=== PATIENT | male | born 1945 ===

== ENCOUNTER 2017-04-09 06:05 | Inpatient (IN) | payer MEDICARE ==
--- NOTE | 2017-04-05 17:00 | HP ---
HISTORY AND PHYSICAL EXAMINATION: DATE OF PROCEDURE: 04/09/17 ATTENDING SURGEON: Tony Sevilla MD * (DICTATED BY ANA WAN) PROCEDURE: Left total hip replacement. CHIEF COMPLAINT: Left hip pain. HISTORY OF PRESENT ILLNESS: The patient is a very pleasant 71-year-old gentleman with a longstanding history of left leg pain who has been followed by Dr. Sevilla and diagnosed with severe end-stage osteoarthritis. He has elected to undergo a left total hip arthroplasty with Dr. Sevilla. PAST MEDICAL HISTORY: 1. Hypertension. 2. Dyslipidemia. PAST SURGICAL HISTORY: 1. Left knee cartilage surgery in 1968. 2. Right knee ACL and cartilage surgery in 1989. MEDICATIONS: 1. Atorvastatin 20 mg 1 tablet p.o. q.h.s. 2. Levocetirizine 5 mg 1 tablet by mouth daily. 3. Fluticasone 50 mcg/ACT 2 sprays each nostril daily p.r.n. 4. Losartan 50 mg 1 tablet by mouth daily. 5. Hydrochlorothiazide 50 mg p.o. daily. ALLERGIES: ZESTRIL. FAMILY HISTORY: Father, history of lung cancer, melanoma, and emphysema. Mother had hypertension. SOCIAL HISTORY: Currently , resides in [place] . No tobacco use. Occasional alcohol use up to 5 drinks per week. Currently living in a 1-anaya house. REVIEW OF SYSTEMS: General: No recent weight changes. No history of seizures or stroke. HEENT: No history of headaches, lightheadedness, dizziness, or syncopal episodes. Cardiac: No history of palpitations, recent abnormal EKG; however, no history of cardiac disease or chest pain. Lungs: No history of COPD, chronic cough, or wheezing. Abdomen: Denies nausea, vomiting, constipation, diarrhea. 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 GI: No history of urinary frequency, urgency. No history of urinary tract infections or kidney stones. Neurologic: No paresthesias or numbness. No history of seizure, stroke, or epilepsy. Hematologic: No history of anemia. No difficulty with bleeding. Positive fear of needles causing fainting. Infectious Disease: No history of HIV, hepatitis, MRSA, or VRE. Integument: No difficulty with wound healing. No open wounds or sores. PHYSICAL EXAMINATION GENERAL: Well appearing, in no acute distress. Alert and oriented. Appears younger than stated age. VITAL SIGNS: Temperature 97.9, blood pressure 130/82, respirations 18. LUNGS: Clear to auscultation bilaterally. No crackles, rhonchi or wheezes. CARDIAC: Regular rate and rhythm. No murmurs, gallops, or rubs. ABDOMEN: Soft, nontender, nondistended. Negative CVA tenderness bilaterally. Normoactive bowel sounds. MUSCULOSKELETAL: Left hip with forward flexion to 60 degrees, abduction to approximately 25 degrees, pain with internal rotation. Posterior tibial pulses 2+ bilaterally. Negative edema, bilateral lower extremities. Negative Homans sign bilaterally. Sensation is intact to light touch in bilateral lower extremities. Positive dorsiflexion, plantar flexion bilaterally. ASSESSMENT: Stable 71-year-old man scheduled to undergo a left total hip arthroplasty. PLAN: The patient underwent radiographs today, which showed severe osteoarthritis of the left hip joint with multiple osseous sites. There were reviewed with Dr. Sevilla. The patient was recently seen by his primary care doctor, and was cleared for the procedure after undergoing cardiac testing including a nuclear stress test, which was negative. We discussed postoperative care, the patient was to return to home. He has not taken narcotics in the past and so no narcotics were prescribed to the patient. He will be on Coumadin postoperatively. He had no other questions or concerns; however, will contact us if any do arise. ANA WAN [id number]/[facility] #: [id number] [facility] CENTERWendi
[~2017-04-09 06:05] MED LIST: Buffered Lidocaine 0.9% SYRIN* 5 ML/SYR SYRINGE INTRADERM ONE; Buffered Lidocaine 0.9% SYRIN* 5 ML/SYR SYRINGE ONE; Famotidine IV* 10 MG/ML 2 ML (20 mg) IV ONE; Famotidine IV* 10 MG/ML 2 ML (20 mg) ONE; Metoclopramide TAB* 10 MG ONE; Metoclopramide TAB* 10 MG PO ONE; ceFAZolin 2 GM PREMIX (*) 2 GM/50 ML BAG IVPB ONE
[2017-04-09 06:47] LABS: INR 0.97 (0.77-1.02)
[2017-04-09] MEDS ORDERED: Ondansetron INJ* 2 MG/ML VIAL ONE (07:06)
[2017-04-09] MEDS ORDERED: Dexamethasone IV* 4 MG/ML 1 ML (4 MG) ONE (07:06)
[2017-04-09] MEDS ORDERED: Ketorolac INJ* 30 MG/ML 1 ML VIAL ONE (07:06)
[2017-04-09] MEDS ORDERED: Lidocaine 2% PF * 5 ML VIAL ONE (07:06)
[2017-04-09] MEDS ORDERED: Propofol* 10 MG/ML 20 ML BTL IV PUSH ONE (07:06)
[2017-04-09] MEDS ORDERED: Midazolam* 1 MG/ML 10 ML VIAL (10 MG) ONE (07:07)
[2017-04-09] MEDS ORDERED: KETAMINE HCL* 50 MG/ML 10 ML VIAL ONE (07:07)
[2017-04-09] MEDS ORDERED: fentaNYL* 50 MCG/ML 2 ML VIAL (100 MCG VIAL) ONE (07:07)
[2017-04-09] MEDS ORDERED: fentaNYL* 50 MCG/ML 5 ML VIAL (250 MCG VIAL) ONE (07:36)
[2017-04-09] MEDS ORDERED: Cisatracurium* 2 MG/ML MDV 5 ML ONE (07:36)
[2017-04-09] MEDS ORDERED: EPHEDrine (Pressors)* 50 MG/ML VIAL ONE (07:45)
[2017-04-09] MEDS ORDERED: Lidocaine 1% MPF wEPI 200,000* 30 ML SDV ONE (07:55)
[2017-04-09] MEDS ORDERED: Bupivacaine 0.5% SDV PF* 10-30ML VIAL ONE (07:55)
[2017-04-09] MEDS ORDERED: VASOPRESSIN 20 UNITS/ML 1 ML VIAL ONE (08:16)
[2017-04-09] MEDS ORDERED: Naloxone* 0.4 MG/ML 1 ML VIAL IV PRN (08:38)
[2017-04-09] MEDS ORDERED: fentaNYL* 50 MCG/ML 2 ML VIAL (100 MCG VIAL) IV PRN (08:38)
[2017-04-09] MEDS ORDERED: HYDROmorphone INJ* 1 MG/ML CARPUJECT SYRINGE IV PRN (08:43)
[2017-04-09] MEDS ORDERED: Ondansetron INJ* 2 MG/ML VIAL IV PRN ×2 (08:43→10:24)
[2017-04-09] MEDS ORDERED: Morphine INJ* 4 MG/ML 1 ML CARPUJECT IV PRN (10:24)
[2017-04-09] MEDS ORDERED: Ondansetron TAB* 4 MG PO PRN (10:24)
[2017-04-09] MEDS ORDERED: diPHENhydraMINE IV* 50 MG/ML 1 ml VIAL (BENADRYL) IV PRN (10:24)
[2017-04-09] MEDS ORDERED: Cyclobenzaprine TAB* 10 MG PO PRN (10:24)
[2017-04-09] MEDS ORDERED: Magnesium Hydroxide LIQ* 30 ML UDC PO PRN (10:24)
[2017-04-09] MEDS ORDERED: Morphine INJ* 2 MG/ML 1 ML SYRINGE (TWO MG - NEW SYRINGE VERSION) IV PRN (10:24)
[2017-04-09] MEDS ORDERED: Acetaminophen TAB* 325 MG PO PRN (10:24)
[2017-04-09] MEDS ORDERED: oxyCODONE TAB* 5 MG TAB PO PRN (10:24)
[2017-04-09] MEDS ORDERED: oxyCODONE/Acetamin 5/325 MG* TAB PO PRN (10:24)
[2017-04-09] MEDS ORDERED: Bisacodyl SUPP* 10 MG SUPP PR PRN (10:24)
[2017-04-09] MEDS ORDERED: D5W 1/2 NS 1000 ML BAG* 1,000 ML IV SCH (11:00)
--- NOTE | 2017-04-09 11:40 | RAD ---
Indication: Left hip replacement, left hip pain. 2 views of left hip are reviewed. Patient status post left hip replacement. No loosening is noted. IMPRESSION: Left hip replacement in satisfactory position.
[2017-04-09] MEDS ORDERED: Warfarin TAB(*) 10 MG PO ONE (17:00)
--- NOTE | 2017-04-09 17:08 | CONSULT ---
Subjective Date of Service: 04/09/17 Interval History: Mr. Maldonado has no pain POD #0. He has no complaints. Says his PCP has been titrating his bp meds and recently added hctz. 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 Past Medical History: Unchanged from Admission Review of Systems - Measurements Intake and Output: Intake and Output Last 24 Hours 04/07/17 04/08/17 04/09/17 04/10/17 06:59 06:59 06:59 06:59 Intake Total 2800 Output Total 600 Balance 2200 Weight 112.945 kg Intake: IV Fluids 2300 LR 2250 NS 50ML, Cefazolin 2G 50 Oral 500 Output: Urine 325 Lopez 200 Estimated Blood Loss 75 - Review of Systems Constitutional Symptoms: Positive: Night Sweats, Unexplained Falls, Other Negative: Weight Gain, Weight Loss, Weakness, Fatigue, Fever Pulmonary: Negative: Normal, Cough, Sputum, Hemoptysis, Wheezing, Respiratory Distress, Shortness of Breath, COPD, Asthma, Exercise Intolerance, Home Oxygen, Other Cardiology: Negative: Normal, Chest Pain, Shortness of Breath, Palpitations, Swelling of Ankles, Peripheral Vascular Dis, Edema, Faintness, Syncope, Claudication, Proximal NocturnalDyspnea, Orthopnoea, Other Musculoskeletal: Positive: Joint Stiffness Objective Active Medications: Acetaminophen (Tylenol Tab*) 650 mg PO Q4H PRN PRN Reason: FEVER/PAIN Aspirin (Aspirin Ec Low Dose*) 81 mg PO QAM MARILUZ Bisacodyl (Dulcolax Supp*) 10 mg TN DAILY PRN PRN Reason: constipation Cetirizine HCl (Zyrtec*) 10 mg PO QAM MARILUZ Cyclobenzaprine HCl (Flexeril Tab*) 10 mg PO TID PRN PRN Reason: SPASMS Diphenhydramine HCl (Benadryl Iv*) 25 mg IV Q6H PRN PRN Reason: itching Docusate Sodium (Colace Cap*) 100 mg PO BID MARILUZ Fluticasone Propionate (Flonase Nasal [place] 50mcg*) 1 spray BOTH NARES BID MARILUZ Heparin Sodium (Porcine) (Heparin Vial(*)) 5,000 units SUBCUT Q12H MARILUZ Hydrochlorothiazide (Hydrodiuril Tab*) 50 mg PO QAM MARILUZ Dextrose/Sodium Chloride (D5w 1/2 Ns 1000 Ml Bag*) 1,000 mls @ 100 mls/hr IV PER RATE MARILUZ Cefazolin Sodium/Dextrose (Kefzol 1 Gm In Dextrose Duplex (*)) 1 gm in 50 mls @ 200 mls/hr IVPB Q8H [facility] Stop: 04/10/17 10:44 Lactulose (Lactulose*) 30 ml PO BID PRN PRN Reason: constipation Losartan Potassium (Cozaar Tab*) 50 mg PO BID MARILUZ Magnesium Hydroxide (Milk Of Magnesia Liq*) 30 ml PO BID MARILUZ Magnesium Hydroxide (Milk Of Magnesia Liq*) 30 ml PO Q6H PRN PRN Reason: constipation Morphine Sulfate (Morphine Inj (Syringe)*) 2 mg IV Q2H PRN PRN Reason: PAIN - SEVERE Morphine Sulfate (Morphine Inj (Syringe)*) 4 mg IV Q2H PRN PRN Reason: PAIN - SEVERE Multivitamins/Minerals (Theragran/Minerals Tab*) 1 tab PO QAM [facility] Pto: Saw [place] 1 (Cap) 1 cap PO QAM [facility] Ondansetron HCl (Zofran Inj*) 4 mg IV Q6H PRN PRN Reason: nausea Ondansetron HCl (Zofran Tab*) 4 mg PO Q6H PRN PRN Reason: NAUSEA Oxycodone HCl (Roxycodone Tab*) 10 mg PO Q4H PRN PRN Reason: PAIN - SEVERE Oxycodone/Acetaminophen (Percocet 5/325 Tab*) 2 tab PO Q4H PRN PRN Reason: PAIN - MODERATE Oxycodone/Acetaminophen (Percocet 5/325 Tab*) 1 tab PO Q4H PRN PRN Reason: PAIN - MILD Vital Signs - 8 hr 04/09/17 04/09/17 04/09/17 10:27 10:30 10:35 Temperature 97.2 F Pulse Rate 91 91 88 Respiratory 12 12 12 Rate Blood Pressure 154/81 146/74 151/70 (mmHg) O2 Sat by Pulse 98 98 98 Oximetry 04/09/17 04/09/17 04/09/17 10:40 10:45 11:00 Temperature Pulse Rate 88 87 87 Respiratory 12 12 12 Rate Blood Pressure 143/72 137/75 134/70 (mmHg) O2 Sat by Pulse 100 99 96 Oximetry 04/09/17 04/09/17 04/09/17 11:15 11:30 11:45 Temperature 97.0 F Pulse Rate 88 78 87 Respiratory 14 12 12 Rate Blood Pressure 138/81 137/80 148/68 (mmHg) O2 Sat by Pulse 97 99 98 Oximetry 04/09/17 04/09/17 04/09/17 12:00 12:30 13:03 Temperature 97.1 F Pulse Rate 85 89 Respiratory 12 13 12 Rate Blood Pressure 142/78 143/81 (mmHg) O2 Sat by Pulse 98 100 Oximetry 04/09/17 04/09/17 04/09/17 13:44 14:39 16:38 Temperature 98.1 F 98.4 F 97.9 F Pulse Rate 88 98 93 Respiratory 18 18 16 Rate Blood Pressure 145/71 168/63 142/70 (mmHg) O2 Sat by Pulse 95 95 94 Oximetry Oxygen Devices in Use Now: None Appearance: well appearing, pleasant man Eyes: No Scleral Icterus Ears/Nose/Mouth/Throat: NL Teeth, Lips, Gums Neck: NL Appearance and Movements; NL JVP Respiratory: Symmetrical Chest Expansion and Respiratory Effort, Clear to Auscultation Cardiovascular: NL Sounds; No Murmurs; No JVD, RRR Abdominal: NL Sounds; No Tenderness; No Distention Lymphatic: No Cervical Adenopathy Extremities: No Edema, - - left hip incision clean Skin: No Rash or Ulcers Neurological: Alert and Oriented x 3 Assessment/Plan - Billing Plan By Medical Problem: 1. HTN. He did not take his am medications today, so his bp is mildly elevated , but no need for medication changes at this point. Continue losartan and hctz at his home doses, as are ordered. 2. HLD. Resume atorvastatin. VTE PPX: heparin sc Diet: full Code Status: full
[2017-04-09] MEDS: oxyCODONE/Acetamin 5/325 MG* TAB PO PRN (18:19)
[2017-04-09] MEDS: ceFAZolin 1 GM in Dextrose (*) 1 GM/50 ML BAG IVPB SCH (18:19)
[2017-04-09] MEDS: Atorvastatin* 20 MG TAB PO SCH ×2 (20:26→20:28)
[2017-04-09] MEDS: Magnesium Hydroxide LIQ* 30 ML UDC PO SCH (20:26)
[2017-04-09] MEDS: Docusate CAP* 100 MG PO SCH (20:26)
[2017-04-09] MEDS: Losartan TAB* 25 MG PO SCH (20:26)
[2017-04-09] MEDS: Fluticasone NASAL SPRAY 50MCG* 16 gm SPRAY BTL BOTH NARES SCH (20:29)
[2017-04-10] MEDS: oxyCODONE/Acetamin 5/325 MG* TAB PO PRN ×4 (00:43→20:38)
[2017-04-10] MEDS: ceFAZolin 1 GM in Dextrose (*) 1 GM/50 ML BAG IVPB SCH ×2 (02:19→08:51)
--- NOTE | 2017-04-10 02:38 | OP ---
DATE OF OPERATION: 04/09/17 - ROOM #[id number] DATE OF : 43 SURGEON: Tony Sevilla MD [employer] OPERATOR: Cecilia Yousif RPA ANESTHESIOLOGIST: John Jones MD ANESTHESIA: General. PRE-OP DIAGNOSIS: Osteoarthritis, left hip. POST-OP DIAGNOSIS: Osteoarthritis, left hip. OPERATIVE PROCEDURE: Left total hip arthroplasty. ESTIMATED BLOOD LOSS: 75 cc. COMPLICATIONS: None. HARDWARE: Berenice 12.5 M/L taper extended offset neck, 54 mm Continuum cup, neutral liner -3.5, 36 mm head. SUMMARY: Mr. Maldonado is a 71-year-old male who has been having more and more troubles with left hip pain. He has [id number] with significant sclerosis, arthritic change and has become more limited and even simple ADLs. I discussed with him that a total hip arthroplasty should work well to decrease his pain and improve his function. Risks of surgery such as infection, scar formation, stiffness, DVT, pulmonary embolism, hardware failure, leg length discrepancy, and instability were some of the risks discussed. He had been declared medically optimize and wished to proceed. DESCRIPTION OF PROCEDURE: The patient was brought to the OR and general anesthesia was established using an LMA. Lopez catheter was placed. He was then rolled into the right lateral decubitus position and an axillary roll was placed. Left hip area was prepped and then draped. Skin over the incisional area was infiltrated using a 50:50 mixture of 0.5% Marcaine mixed with 1.5% lidocaine with epinephrine. A total of 60 cc of that mixture would be used through the case. Incision was made, carried down through the skin and subcutaneous fat. Small bleeders encountered were ligated using electrocautery. Fascia was exposed and sharply incised. Bursa was taken down from the greater trochanter and Hohmann was placed under the gluteus medius/ gluteus minimus. Nice exposure of piriformis and short external rotators was obtained. Electrocautery was used to taken down piriformis and short external rotators and open the capsule. T-capsulotomy was made and the hip was dislocated. Cutting guide was placed and the femoral neck was marked. Reciprocating saw was then used to make the femoral neck cut. Anterior C retractor was placed as was a Hohmann inferiorly and nice exposure of the acetabulum was obtained. He had quite the redundant labrum and this was taken down sharply. Capsule was nicely preserved especially posteriorly. Beginning with a 44 reamer, he was first deepened a little bit and then progressively enlarged. He was templated to a 54 and at 53, had a nice side to side fit with bleeding bone, so a 54 cup was called for. Cup was impacted into place and nice solid fit was obtained. Two screws were placed and a nice bite was obtained with both. Flat trial linear was placed and attention was turned to the femur. Box osteotome was used to open the femoral canal and actually had difficulty trying to pass the canal finder. He felt quite tight. Beginning with a 4 broach, he was progressively broached and had quite a solid bone. I had templated him to a 13.5; but at an 11, I had good fit and I thought perhaps he would be all right, so he was then trialed with the 11. Length was a little bit long. An 11 was then countersunk some and then the 11 went down easily. I was then able to countersunk a 12.5 little bit and using the extended offset neck that he was templated for, his leg length now felt equal and his stability was excellent. Calcar planer was used to smooth the femoral neck cut. 12.5 stem was called for and a flat liner was impacted into place. With the -3.5 head, again his leg length felt quite good and stability was excellent where he could be hyperflexed without any leverage of the ball out of the cup and at 90 degrees, even past 70 degrees of internal rotation he was not levering out. In full adduction at about 60 degrees, he would start to lever out some. He still did not dislocate in opposition. In extension, the knee did not extend and I thought his leg length was good. The -3.5, 36 mm head was impacted into place. Hip was copiously pulse lavaged. Capsule and short external rotators were paired together into the posterior aspect of the greater trochanter. Fascia was repaired using interrupted #1 Vicryl sutures. Wound was again copiously pulse lavaged. Subcutaneous tissue was repaired in layers using 2-0 Vicryl and the skin was closed using randi. Sterile dressing was applied. The patient was then rolled on to the hospital bed and the LMA removed in the OR. He was then stable on transfer to the recovery room. [id number]/[facility] #: [id number] CHRISTIANE
[2017-04-10 05:46] LABS: Hematocrit 30 % (42-52); Hemoglobin 10.2 g/dl (14.0-18.0); Mean Platelet Volume 8 um3 (7.4-10.4); Platelet Count 188 10^3/ul (150-450)
[2017-04-10 05:50] LABS: INR 1.13 (0.77-1.02)
[2017-04-10 06:20] LABS: EGFR Non-African American 60.1 (>60)
[2017-04-10] MEDS: Magnesium Hydroxide LIQ* 30 ML UDC PO SCH ×2 (08:04→20:31)
[2017-04-10] MEDS: Aspirin EC Low Dose* 81 MG TAB.EC PO SCH (08:04)
[2017-04-10] MEDS: Losartan TAB* 25 MG PO SCH ×2 (08:04→20:31)
[2017-04-10] MEDS: Multivitamins/Minerals TAB PO SCH (08:04)
[2017-04-10] MEDS: Fluticasone NASAL SPRAY 50MCG* 16 gm SPRAY BTL BOTH NARES SCH ×2 (08:04→20:31)
[2017-04-10] MEDS: Docusate CAP* 100 MG PO SCH ×2 (08:04→20:30)
[2017-04-10] MEDS: Hydrochlorothiazide TAB* 50 MG PO SCH (08:05)
[2017-04-10] MEDS: Cetirizine* 10 MG TAB PO SCH (08:05)
--- NOTE | 2017-04-10 08:14 | PN ---
Progress Note - Progress Note Date of Service: 04/10/17 SOAP: Subjective: []Patient seen at bedside. He feels well with no complaint of L hip pain. Denies CP, SOB, nausea or dizziness. Objective: [] Vital Signs Temp 98.3 F 04/10/17 07:27 Pulse 77 04/10/17 07:27 Resp 18 04/10/17 08:05 BP 123/65 04/10/17 07:27 Pulse Ox 98 04/10/17 07:27 Intake & Output 04/09/17 04/10/17 04/10/17 18:59 06:59 18:59 Intake Total 2800 2600 Output Total 600 2900 Balance 2200 -300 Intake: IV Fluids 2300 975 D5W 1/2 NS 975 LR 2250 NS 50ML, Cefazolin 2G 50 Oral 500 1625 Output: Urine 325 Lopez 200 2900 Estimated Blood Loss 75 Other: # Bowel Movements 0 Laboratory Last Values Hgb 10.2 g/dl (14.0-18.0) L 04/10/17 05:21 Hct 30 % (42-52) L 04/10/17 05:21 Plt Count 188 10^3/ul (150-450) 04/10/17 05:21 MPV 8 um3 (7.4-10.4) 04/10/17 05:21 INR (Anticoag Therapy) 1.13 (0.77-1.02) H 04/10/17 05:21 APTT 27.8 seconds (26.0-36.3) 04/09/17 06:27 Sodium 134 mmol/L (133-145) 04/10/17 05:21 Potassium 4.2 mmol/L (3.5-5.0) 04/10/17 05:21 Chloride 99 mmol/L (101-111) L 04/10/17 05:21 Carbon Dioxide 29 mmol/L (22-32) 04/10/17 05:21 Anion Gap 6 mmol/L (2-11) 04/10/17 05:21 BUN 27 mg/dL (6-24) H 04/10/17 05:21 Creatinine 1.19 mg/dL (0.67-1.17) H 04/10/17 05:21 Est GFR ( Amer) 77.3 (>60) 04/10/17 05:21 Est GFR (Non-Af Amer) 60.1 (>60) 04/10/17 05:21 BUN/Creatinine Ratio 22.7 (8-20) H 04/10/17 05:21 Glucose 181 mg/dL (70-100) H 04/10/17 05:21 Calcium 8.6 mg/dL (8.6-10.3) 04/10/17 05:21 General: NAD, calm and cooperative LLE: Dressing CDI. DF/PF intact. DP2+ Bl LE: calves supple and nontender without erythema, edema or palpable cords Assessment: []POD 1 s/p left total hip arthroplasty 04/09/16, Dr Sevilla Plan: []WBAT PT/OT Heparin, Coumadin 6 mg today Per pt he does not take lipitor or saw palmetto, will DC Plan for DC 04/11
[2017-04-10] MEDS ORDERED: SAW PALMETTO PO SCH (09:00)
[2017-04-10] MEDS: Heparin VIAL(*) 5000 UNITS/ML VIAL (FIVE THOUSAND) SUBCUT SCH ×2 (12:43→23:46)
[2017-04-10] MEDS ORDERED: Warfarin TAB(*) 6 MG PO SCH (17:00)
[2017-04-11] MEDS: oxyCODONE/Acetamin 5/325 MG* TAB PO PRN ×5 (02:04→23:52)
[2017-04-11 06:01] LABS: Hematocrit 31 % (42-52); Hemoglobin 10.7 g/dl (14.0-18.0); Mean Platelet Volume 8 um3 (7.4-10.4); Platelet Count 182 10^3/ul (150-450)
[2017-04-11 06:24] LABS: INR 1.99 (0.77-1.02)
--- NOTE | 2017-04-11 08:09 | PN ---
Progress Note - Progress Note Date of Service: 04/11/17 SOAP: Subjective: []Patient seen at bedside. His pain is well controlled and he denies CP, SOB, dizziness, nausea. Objective: [] Vital Signs Temp 98.4 F 04/11/17 07:49 Pulse 59 04/11/17 07:49 Resp 16 04/11/17 07:49 BP 124/68 04/11/17 07:49 Pulse Ox 97 04/11/17 07:49 Intake & Output 04/10/17 04/11/17 04/11/17 18:59 06:59 18:59 Intake Total 2030 1630 Output Total 2350 1275 Balance -320 355 Intake: IV Fluids 1010 D5W 1/2 NS 1010 IVPB 105 ABX - CEFAZOLIN 105 Oral 915 1630 Output: Urine 2350 1275 Laboratory Last Values Hgb 10.7 g/dl (14.0-18.0) L 04/11/17 05:30 Hct 31 % (42-52) L 04/11/17 05:30 Plt Count 182 10^3/ul (150-450) 04/11/17 05:30 MPV 8 um3 (7.4-10.4) 04/11/17 05:30 INR (Anticoag Therapy) 1.99 (0.77-1.02) H 04/11/17 05:30 APTT 27.8 seconds (26.0-36.3) 04/09/17 06:27 Sodium 134 mmol/L (133-145) 04/10/17 05:21 Potassium 4.2 mmol/L (3.5-5.0) 04/10/17 05:21 Chloride 99 mmol/L (101-111) L 04/10/17 05:21 Carbon Dioxide 29 mmol/L (22-32) 04/10/17 05:21 Anion Gap 6 mmol/L (2-11) 04/10/17 05:21 BUN 27 mg/dL (6-24) H 04/10/17 05:21 Creatinine 1.19 mg/dL (0.67-1.17) H 04/10/17 05:21 Est GFR ( Amer) 77.3 (>60) 04/10/17 05:21 Est GFR (Non-Af Amer) 60.1 (>60) 04/10/17 05:21 BUN/Creatinine Ratio 22.7 (8-20) H 04/10/17 05:21 Glucose 181 mg/dL (70-100) H 04/10/17 05:21 Calcium 8.6 mg/dL (8.6-10.3) 04/10/17 05:21 General: Patient seen at bedside. NAD, calm and cooperative. LLE: Dressing changed. Incision CDI without erythema or discharge. DF/PF intact. DP/PT 2+. Sensation intact distally BL LE: Calves supple and nontender without erythema, edema or palpable cords. Assessment: []POD 2 s/p left total hip arthroplasty 04/09/16, Dr Sevilla Plan: []WBAT PT/OT Heparin, Coumadin 2 mg today Plan for DC home today or tomorrow.
[2017-04-11] MEDS: Fluticasone NASAL SPRAY 50MCG* 16 gm SPRAY BTL BOTH NARES SCH ×2 (08:43→20:03)
[2017-04-11] MEDS: Cetirizine* 10 MG TAB PO SCH (08:44)
[2017-04-11] MEDS: Magnesium Hydroxide LIQ* 30 ML UDC PO SCH ×2 (08:44→20:03)
[2017-04-11] MEDS: Multivitamins/Minerals TAB PO SCH (08:45)
[2017-04-11] MEDS: Aspirin EC Low Dose* 81 MG TAB.EC PO SCH (08:45)
[2017-04-11] MEDS: Docusate CAP* 100 MG PO SCH ×2 (08:45→20:03)
[2017-04-11] MEDS: Hydrochlorothiazide TAB* 50 MG PO SCH (08:45)
[2017-04-11] MEDS: Losartan TAB* 25 MG PO SCH ×2 (08:45→20:03)
[2017-04-11] MEDS: Heparin VIAL(*) 5000 UNITS/ML VIAL (FIVE THOUSAND) SUBCUT SCH (11:50)
[2017-04-11] MEDS ORDERED: Warfarin TAB(*) 2 MG PO ONE (17:00)
--- NOTE | 2017-04-12 02:32 | DS ---
DISCHARGE SUMMARY: DATE OF ADMISSION: 04/09/17 DATE OF DISCHARGE: 04/12/17 PROVIDER: Dr. Tony Sevilla.* (DICTATED BY ANA GAMBOA) DATE OF OPERATION: 04/09/17 ACUTE CARE OCCUPATIONAL THERAPIST: ANA Simpson PREOPERATIVE DIAGNOSIS: Osteoarthritis of the left hip. OPERATIVE PROCEDURE: Left total hip arthroplasty. HISTORY: Mr. Maldonado is a 71-year-old male who has been having more and more troubles with the left hip pain. He has [id number] and significant sclerosis , arthritic change and has become more limited and even simple activities of daily living. I discussed with him that a total hip arthroplasty would work well to decrease his pain and improve function. HOSPITAL COURSE: Mr. Maldonado was admitted to [facility] on 04/09/17. He underwent a left total hip arthroplasty by Dr. Tony Sevilla without complication. He was brought to the PACU where he recovered briefly and then to short-stay surgical unit in stable condition. He was seen by hospitalist, Dr. Giulia Puentes on postop day 0 for consult and for blood pressure management. On postop day 1, the patient was calm and cooperative, in no acute distress. His dressing was clean, dry, and intact. Dorsiflexion and plantar flexion intact. Dorsalis pedis was 2+. Calves are supple and nontender without erythema, edema, or palpable cords. On postop day 2, the patient was seen at bedside, in no acute distress, calm and cooperative. Dressing was changed. Incision was clean, dry, and intact without erythema or discharge. Dorsiflexion and plantar flexion are intact. Dorsalis pedis and posterior tibial pulses 2+. Sensation intact distally. Lab values are as followed: On 04/10/17, hemoglobin 10.2, hematocrit 30, INR 1.13. On 04/11/17, hemoglobin 10.7, hematocrit 31, INR 1.99. The patient will be seen postop day 3, 04/12/17 with intended discharge, also an exam, and Coumadin dosing. DISCHARGE MEDICATIONS: 1. Hydrochlorothiazide 50 mg p.o. q.a.m. 2. Losartan 50 mg p.o. b.i.d. 3. Xyzal 5 mg p.o. q.a.m. 4. Fluticasone nasal spray 1 spray to both nares b.i.d. 5. Multivitamin 1 tab daily. 6. Saw palmetto 1 cap daily. 7. Glucosamine chondroitin/hyaluronic acid 1 tab daily. 8. Garlic 1 tab daily. 9. Aspirin 81 mg p.o. q.a.m. 10. Probiotic daily. 11. Acetaminophen 650 mg p.o. q.4 hours p.r.n., max daily dose of 4000 mg from all sources. 12. Percocet 5/325 one to two tabs p.o. q.4 hours p.r.n., max daily dose of 10. 13. Coumadin 2 mg tablets, the patient will take 1 to 3 tabs daily depending on INR draws. 14. Docusate 100 mg p.o. b.i.d. p.r.n. constipation. DISCHARGE PLAN: The patient is weightbearing as tolerated. Please continue hip precautions. Do not cross your legs, do not bend greater than 90 degrees, and do not squat. Wound care, it is okay to shower on the third postoperative day. No swimming, bathing, or submerging wound. Call orthopedic office for increased drainage, redness, increased pain, or fever. Go to the emergency room with shortness of breath or chest pain. Regular diet. Please continue to use stool softeners. Call the office if no bowel motion within 48 hours. Continue physical therapy and occupational therapy exercises as shown. Visiting home nurse will remove your randi in 10 to 12 days and do wound checks. Visiting home nurse will also draw blood work for INRs on Mondays and . Coumadin dosing to be determined tomorrow. Pain control with Percocet 5/325 mg 1 to 2 tabs p.o. q.4 to 6 hours, max daily dose of 10 tablets. Please note that Percocet contains Tylenol, maximum daily dose of Tylenol is 4000 mg from all sources. Please follow up with Dr. Sevilla within 4 weeks, call for appointment. ANA GAMBOA [id number]/[facility] #: [id number] [facility]
[2017-04-12 05:09] LABS: Hematocrit 31 % (42-52); Hemoglobin 10.7 g/dl (14.0-18.0); Mean Platelet Volume 8 um3 (7.4-10.4); Platelet Count 202 10^3/ul (150-450)
[2017-04-12 05:19] LABS: INR 1.92 (0.77-1.02)
[2017-04-12] MEDS: oxyCODONE/Acetamin 5/325 MG* TAB PO PRN (07:37)
[2017-04-12 07:55] VITALS: BP 147/78
--- NOTE | 2017-04-12 07:59 | PN ---
Progress Note - Progress Note Date of Service: 04/12/17 SOAP: Subjective: []Patient seen at bedside. He feels well and is ready for discharge. Denies CP, SOB, nausea or dizziness. Objective: []General: Well appearing, NAD. LLE: Dressing changed. Incision CDI without erythema or drainage. DF/PF intact. DP/PT 2+. BL LE: Calves supple and nontender without erythema, edema or palpable cords. Vital Signs Temp 97.0 F 04/12/17 07:27 Pulse 64 04/12/17 07:27 Resp 18 04/12/17 09:53 BP 147/78 04/12/17 07:27 Pulse Ox 97 04/12/17 08:00 Intake & Output 04/11/17 04/12/17 04/12/17 18:59 06:59 18:59 Intake Total 1250 840 600 Output Total 2100 1050 500 Balance -850 -210 100 Intake: Oral 1250 840 600 Output: Urine 2100 1050 500 Laboratory Last Values Hgb 10.7 g/dl (14.0-18.0) L 04/12/17 04:45 Hct 31 % (42-52) L 04/12/17 04:45 Plt Count 202 10^3/ul (150-450) 04/12/17 04:45 MPV 8 um3 (7.4-10.4) 04/12/17 04:45 INR (Anticoag Therapy) 1.92 (0.77-1.02) H 04/12/17 04:45 APTT 27.8 seconds (26.0-36.3) 04/09/17 06:27 Sodium 134 mmol/L (133-145) 04/10/17 05:21 Potassium 4.2 mmol/L (3.5-5.0) 04/10/17 05:21 Chloride 99 mmol/L (101-111) L 04/10/17 05:21 Carbon Dioxide 29 mmol/L (22-32) 04/10/17 05:21 Anion Gap 6 mmol/L (2-11) 04/10/17 05:21 BUN 27 mg/dL (6-24) H 04/10/17 05:21 Creatinine 1.19 mg/dL (0.67-1.17) H 04/10/17 05:21 Est GFR ( Amer) 77.3 (>60) 04/10/17 05:21 Est GFR (Non-Af Amer) 60.1 (>60) 04/10/17 05:21 BUN/Creatinine Ratio 22.7 (8-20) H 04/10/17 05:21 Glucose 181 mg/dL (70-100) H 04/10/17 05:21 Calcium 8.6 mg/dL (8.6-10.3) 04/10/17 05:21 Assessment: []POD 3 s/p left total hip arthroplasty 04/09/16, Dr Sevilla Plan: []WBAT PT/OT Coumadin 2 mg daily until INR is rechecked 04/16 Plan for DC home today
[2017-04-12] MEDS: Fluticasone NASAL SPRAY 50MCG* 16 gm SPRAY BTL BOTH NARES SCH (08:20)
[2017-04-12] MEDS: Magnesium Hydroxide LIQ* 30 ML UDC PO SCH (08:21)
[2017-04-12] MEDS: Losartan TAB* 25 MG PO SCH (08:22)
[2017-04-12] MEDS: Cetirizine* 10 MG TAB PO SCH (08:22)
[2017-04-12] MEDS: Hydrochlorothiazide TAB* 50 MG PO SCH (08:22)
[2017-04-12] MEDS: Docusate CAP* 100 MG PO SCH (08:22)
[2017-04-12] MEDS: Multivitamins/Minerals TAB PO SCH (08:22)
[2017-04-12] MEDS: Aspirin EC Low Dose* 81 MG TAB.EC PO SCH (08:22)
--- NOTE | 2017-04-13 00:41 | DS ---
DISCHARGE SUMMARY: ADDENDUM: DATE OF ADMISSION: 04/09/17 DATE OF DISCHARGE: 04/12/17 DATE OF OPERATION: 04/09/17 PROVIDER: Tony Sevilla MD * (DICTATED BY ANA GAMBOA) THREAD CLIPPER: ANA Simpson PRE-OP DIAGNOSIS: Osteoarthritis of the left hip. OPERATIVE PROCEDURE: Left total hip arthroplasty. HISTORY: Mr. Maldonado is a 71-year-old male who has been having more and more troubles with left hip pain. He had [id number] with significant sclerosis, arthritic changes and had become more limited even with simple ADLs. He has elected for total hip arthroplasty on the left side. The patient was admitted to [facility] on 04/09/17. On postop day #3, hemoglobin 10.7, hematocrit 31, INR 1.92. Dressing was changed. Incision clean, dry and intact without erythema or drainage. Dorsiflexion and plantarflexion intact. Dorsalis pedis, posterior tibial pulse 2+. The patient was deemed to be medically and orthopedically stable for discharge. No other changes to the addendum on David Maldonado's discharge. ANA GAMBOA [id number]/[facility] #: [id number] MTDD
== END 2017-04-12 11:00 | disposition home health service (06) | DRG 470 ==
LOC: AA 06:05 → SSU 12:54
PROVIDERS: ADMIT Orthopaedic Surgery; ATTEND Orthopaedic Surgery
PROC: 0SRB0JA Replacement of Left Hip Joint with Synthetic Substitute, Uncemented, Open Approach (ICD-10-PCS; principal; 2017-04-09 07:30)
DX: M16.12 Unilateral primary osteoarthritis, left hip (principal); E78.5 Hyperlipidemia, unspecified; G47.33 Obstructive sleep apnea (adult) (pediatric); I10 Essential (primary) hypertension; Z88.8 Allergy status to other drugs, medicaments and biological substances; Z72.89 Other problems related to lifestyle; Z82.49 Family history of ischemic heart disease and other diseases of the circulatory system; Z79.82 Long term (current) use of aspirin
CPT/HCPCS: 36415; 72170; 80048; 85014; 85018; 85049; 85610; 85730; 88304; 88311; A9270-GY; C1713; C1776; J0690; J1100; J1644; J1885; J2001; J2250; J2405; J2704; J3010

== ENCOUNTER → 2019-09-09 12:30 | Observation (INO) ==
[2019-09-08] MEDS: ceFAZolin VIAL(*) 1 GM in NS 0.9% 50 ML 50 ML IVPB SCH (22:09)
[2019-09-09] MEDS: ceFAZolin VIAL(*) 1 GM in NS 0.9% 50 ML 50 ML IVPB SCH (05:17)
[2019-09-09 09:41] VITALS: BP 134/79
[~2019-09-09 12:30] MED LIST changes: -Buffered Lidocaine 0.9% SYRIN* 5 ML/SYR SYRINGE INTRADERM ONE; -Buffered Lidocaine 0.9% SYRIN* 5 ML/SYR SYRINGE ONE; -Famotidine IV* 10 MG/ML 2 ML (20 mg) IV ONE; -Famotidine IV* 10 MG/ML 2 ML (20 mg) ONE; -Metoclopramide TAB* 10 MG ONE; -Metoclopramide TAB* 10 MG PO ONE; -ceFAZolin 2 GM PREMIX (*) 2 GM/50 ML BAG IVPB ONE; +oxyCODONE/Acetamin 5/325 mg TAB PO PRN
== END | disposition home or self-care (01) ==
LOC: MEDTELE
PROVIDERS: ADMIT Specialist; ATTEND Specialist

== ENCOUNTER 2020-08-30 11:26 | Inpatient (IN) ==
[~2020-08-30 11:26] MED LIST changes: +Buffered Lidocaine 1% SYRIN 1 ml INTRADERM ONE; +DiMENhydriNATE IV 50 mg/ml 1 ml VIAL IV PUSH PRN; +Lactated Ringers 1000 ml BAG 1,000 ML IV SCH; +Naloxone 0.4 mg VIAL 0.4 mg/ml 1 ml VIAL IV PRN; +fentaNYL 100 mcg/2 ml 50 MCG/ML VIAL IV PRN; -oxyCODONE/Acetamin 5/325 mg TAB PO PRN
[2020-08-30] MEDS ORDERED: ceFAZolin 2 GM PREMIX 2 GM/50 ML BAG ONE (12:08)
[2020-08-30] MEDS ORDERED: Midazolam 2 mg/2 ml VIAL 1 mg/ml 2 ml VIAL (2 mg) ONE (14:10)
[2020-08-30] MEDS ORDERED: Propofol 10 MG/ML 20 ML BTL ONE (14:17)
[2020-08-30] MEDS ORDERED: Rocuronium 50 mg VIAL 10 mg/ml 5 ml VIAL (50 mg) ONE ×2 (14:17→15:44)
[2020-08-30] MEDS ORDERED: fentaNYL 250 mcg/5 ml 50 MCG/ML 5 ml VIAL (250 MCG) ONE (14:17)
[2020-08-30] MEDS ORDERED: Lidocaine 2% PF 5 ML VIAL ONE (14:21)
[2020-08-30] MEDS ORDERED: Phenylephrine 40 mcg/mL 10mL (400mcg) SYRINGE ONE (15:42)
[2020-08-30] MEDS ORDERED: Dexamethasone IV 4 MG/ML VIAL 1 ml VIAL ONE (15:44)
[2020-08-30] MEDS ORDERED: Ondansetron 4 mg VIAL 2 MG/ML 2 ml VIAL ONE (15:44)
[2020-08-30] MEDS ORDERED: Vancomycin 1,000 MG VIAL ONE (16:14)
[2020-08-30] MEDS ORDERED: Acetaminophen IV 1 GM/100ML 100 ML ONE (16:16)
[2020-08-30] MEDS ORDERED: Morphine 2 MG/ML SYRINGE IV PRN (16:37)
[2020-08-30] MEDS ORDERED: Ondansetron 4 mg VIAL 2 MG/ML 2 ml VIAL IV PRN (16:37)
[2020-08-30] MEDS ORDERED: diPHENhydraMINE IV 50 MG/ML 1 ml VIAL (BENADRYL) IV PRN (16:37)
[2020-08-30] MEDS ORDERED: Lactulose 30 ml UDC PO PRN (16:37)
[2020-08-30] MEDS ORDERED: diPHENhydraMINE 25 mg TAB PO PRN (16:37)
[2020-08-30] MEDS ORDERED: Magnesium Hydroxide LIQ 30 ML UDC PO PRN (16:37)
[2020-08-30] MEDS ORDERED: Ondansetron ODT 4 mg TAB 4 MG TAB PO PRN (16:37)
[2020-08-30] MEDS ORDERED: Lactated Ringers 1000 ml BAG 1,000 ML IV SCH (17:00)
[2020-08-30] MEDS ORDERED: Aspirin EC 81 mg TAB.EC (enteric coated) PO SCH (18:00)
[2020-08-30] MEDS: Magnesium Hydroxide LIQ 30 ML UDC PO SCH (20:26)
[2020-08-30] MEDS: ceFAZolin 1 GM ADVAN 1 GM in NS 0.9% 50 ML 50 ML IVPB SCH (22:43)
[2020-08-31 04:51] LABS: Hematocrit 31 % (42-52); Hemoglobin 10.8 g/dL (14.0-18.0); Mean Platelet Volume 8.4 fL (7.4-10.4); Platelet Count 212 10^3/uL (150-450)
[2020-08-31 05:09] LABS: Calcium 8.9 mg/dL (8.6-10.3); EGFR African American 46.5 (>60); EGFR Non-African American 38.4 (>60); Potassium 4.1 mmol/L (3.5-5.0)
[2020-08-31] MEDS: ceFAZolin 1 GM ADVAN 1 GM in NS 0.9% 50 ML 50 ML IVPB SCH ×2 (06:15→14:40)
[2020-08-31] MEDS: Magnesium Hydroxide LIQ 30 ML UDC PO SCH (08:26)
[2020-08-31] MEDS ORDERED: Vitamin THERAPEUTIC TAB PO SCH (09:00)
[2020-08-31] MEDS ORDERED: PREVAGEN 10 MG PO SCH (09:00)
[2020-08-31 11:39] VITALS: BP 119/53
== END 2020-08-31 15:55 | disposition home or self-care (01) | DRG 470 ==
LOC: OR 11:26 → SSU 11:26
PROVIDERS: ADMIT Orthopaedic Surgery; ATTEND Orthopaedic Surgery

== ENCOUNTER 2023-11-08 08:07 | Observation (INO) ==
[~2023-11-08 08:07] MED LIST changes: -Buffered Lidocaine 1% SYRIN 1 ml INTRADERM ONE; -DiMENhydriNATE IV 50 mg/ml 1 ml VIAL IV PUSH PRN; -Lactated Ringers 1000 ml BAG 1,000 ML IV SCH; +Metoclopramide 5 MG/ML VIAL (10 mg) IV PRN; +NS 0.45% 1000 ml BAG 1,000 ML IV SCH; +Ondansetron 4 mg VIAL 2 MG/ML 2 ml VIAL IV PRN
[2023-11-08] MEDS ORDERED: Lidocaine 2% PF 5 ML VIAL ONE (08:15)
[2023-11-08] MEDS ORDERED: fentaNYL 250 mcg/5 ml 50 MCG/ML 5 ml VIAL (250 MCG) ONE (08:15)
[2023-11-08] MEDS ORDERED: Midazolam 2 mg/2 ml VIAL 1 mg/ml 2 ml VIAL (2 mg) ONE ×2 (08:15→09:57)
[2023-11-08] MEDS ORDERED: Ondansetron 4 mg VIAL 2 MG/ML 2 ml VIAL ONE (08:19)
[2023-11-08] MEDS ORDERED: Dexamethasone IV 4 MG/ML VIAL 1 ml VIAL ONE ×2 (08:19→09:58)
[2023-11-08] MEDS ORDERED: ceFAZolin 2 GM PREMIX 2 GM/50 ML BAG ONE (08:32)
[2023-11-08] MEDS ORDERED: Tranexamic Acid 1 GM/100ML BAG 2,000 MG/200 ML BAG IV ONE (08:33)
[2023-11-08 08:54] LABS: Rapid COVID-19 Molecular Undetected (Undetected)
[2023-11-08] MEDS: Buffered Lidocaine 1% SYRIN 1 ml INTRADERM ONE (08:56)
[2023-11-08] MEDS: Scopolamine 1 mg/72hr PATCH TRANSDERM ONE (08:57)
[2023-11-08] MEDS: Lactated Ringers 1000 ml BAG 1,000 ML IV SCH ×2 (08:57→15:09)
[2023-11-08] MEDS ORDERED: ROPIVACAINE 5 MG/ML 30 ML BTL (0.5%) ONE ×2 (09:45→09:58)
[2023-11-08] MEDS ORDERED: Lidocaine 1% VIAL 10 MG/ML 30 ML VIAL ONE (09:58)
[2023-11-08] MEDS ORDERED: Phenylephrine 40 mcg/mL 10mL (400mcg) SYRINGE ONE (10:45)
[2023-11-08] MEDS ORDERED: Propofol 10 MG/ML 20 ML BTL ONE (11:22)
[2023-11-08] MEDS ORDERED: Calcium Carb (TUMS) 500 mg CHEW TAB PO PRN (12:52)
[2023-11-08] MEDS ORDERED: Ondansetron 4 mg VIAL 2 MG/ML 2 ml VIAL IV PRN (12:52)
[2023-11-08] MEDS ORDERED: Morphine 2 MG/ML SYRINGE IV PRN (12:52)
[2023-11-08] MEDS ORDERED: Magnesium Hydroxide LIQ 30 ML UDC PO PRN (12:52)
[2023-11-08] MEDS ORDERED: Lactulose 30 ml UDC PO PRN (12:52)
[2023-11-08] MEDS ORDERED: Ondansetron ODT 4 mg TAB 4 MG TAB PO PRN (12:52)
[2023-11-08] MEDS: Acetaminophen IV 1 GM/100ML 1,000 MG/100 ML BAG IV ONE (14:39)
[2023-11-08] MEDS: ceFAZolin 2 GM PREMIX 2 GM/50 ML BAG IVPB SCH (18:22)
[2023-11-08] MEDS: Magnesium Hydroxide LIQ 30 ML UDC PO SCH (21:18)
[2023-11-09] MEDS: ceFAZolin 2 GM PREMIX 2 GM/50 ML BAG IVPB SCH (06:38)
[2023-11-09 06:53] LABS: Hematocrit 31.7 % (38-53); Hemoglobin 11.1 g/dL (13.2-16.3); Mean Platelet Volume 8.3 fL (7.5-11.2); Platelet Count 183 10^3/uL (150-450)
[2023-11-09 07:30] LABS: Calcium 8.8 mg/dL (8.6-10.3); Creatinine, Serum 1.53 mg/dL (0.67-1.17); Potassium 4.1 mmol/L (3.5-5.0); eGFR CKD-EPI 46.2 (>60)
[2023-11-09] MEDS: Vitamin THERAPEUTIC TAB PO SCH (08:09)
[2023-11-09] MEDS: Aspirin EC 81 mg TAB.EC (enteric coated) PO SCH (08:09)
[2023-11-09 10:31] VITALS: BP 144/71
== END 2023-11-09 13:00 | disposition home or self-care (01) ==
LOC: SSU 08:07 → OR 08:07
PROVIDERS: ADMIT Orthopaedic Surgery Adult Reconstructive Orthopaedic Surgery; ATTEND Orthopaedic Surgery Adult Reconstructive Orthopaedic Surgery